=== PATIENT | male | born 1985 | race Caucasian/White ===

== ENCOUNTER 2019-01-05 19:44 | Emergency (ER) | payer SELFPAY ==
[~2019-01-05] VITALS: Ht 162.6 cm; Wt 75.0 kg
[2019-01-05 19:53] VITALS: BP 149/85
== END 2019-01-05 22:09 | disposition home or self-care (01) ==
LOC: ER 21:37
DX: S01.01XD Laceration without foreign body of scalp, subsequent encounter (principal); X58.XXXD Exposure to other specified factors, subsequent encounter
CPT/HCPCS: 99281; Z7610